=== PATIENT | male | born 1985 | race Caucasian/White ===

== ENCOUNTER 2021-06-14 10:56 | Observation (INO) | payer BC ==
[~2021-06-14] VITALS: Ht 182.9 cm; Wt 222.3 kg
[2021-06-14 13:18] LABS: HEMOGLOBIN 13.5 gm/dl (14.0-17.5); RED BLOOD COUNT 4.27 M/UL (4.20-5.50); WHITE BLOOD COUNT 10.5 K/UL (4.5-11.0)
[2021-06-14 13:47] LABS: BUN/CREATININE RATIO 27 (0-10)
[2021-06-14] MEDS ORDERED: PROTONIX 40 MG40 M1 PO (18:44)
[2021-06-14] MEDS ORDERED: ONDANSETRON HCL4 MG PO (18:45)
[2021-06-14] MEDS ORDERED: BUPRENORPHIN-N1 EACH SL ×2 (18:46)
[2021-06-14] MEDS ORDERED: QUETIAPINE FUMA50 MG PO (18:47)
[2021-06-14] MEDS ORDERED: LISINOPRIL10 MG PO (18:47)
[2021-06-14] MEDS ORDERED: PROPRANOLOL HCL10 MG PO (18:47)
[2021-06-14] MEDS ORDERED: METHOCARBAMOL500 MG PO (18:47)
[2021-06-14] MEDS ORDERED: VENLAFAXINE H37.5 MG PO (18:48)
[2021-06-14] MEDS ORDERED: LEVOTHYROXINE25 MCG PO (18:48)
[2021-06-14] MEDS ORDERED: GUANFACINE HCL1 MG PO (18:48)
[2021-06-14] MEDS ORDERED: DICLOFENAC POTA50 MG PO (18:52)
[2021-06-14] MEDS ORDERED: VITAMIN D21250 MCG PO (18:52)
[2021-06-14] MEDS ORDERED: HYDROXYZINE PAM25 MG PO (18:53)
[2021-06-14] MEDS ORDERED: LISINOPRIL40 MG PO (18:53)
[2021-06-14] MEDS ORDERED: SERTRALINE HCL100 MG PO (18:53)
[2021-06-14] MEDS ORDERED: AMLODIPINE BESY10 MG PO (18:53)
[2021-06-14] MEDS ORDERED: FEBUXOSTAT40 MG PO (18:54)
[2021-06-14] MEDS ORDERED: CETIRIZINE HCL10 MG PO (18:54)
[2021-06-14] MEDS ORDERED: GEMFIBROZIL600 MG PO (18:54)
[2021-06-14] MEDS ORDERED: RYBELSUS7 MG PO (18:55)
[2021-06-14] MEDS ORDERED: OMEPRAZOLE40 MG PO (18:55)
[2021-06-14] MEDS ORDERED: METFORMIN HCL1000 MG PO (18:55)
[2021-06-15 07:18] LABS: HEMOGLOBIN 12.9 gm/dl (14.0-17.5); RED BLOOD COUNT 4.16 M/UL (4.20-5.50); WHITE BLOOD COUNT 8.8 K/UL (4.5-11.0)
[2021-06-15 07:55] LABS: BUN/CREATININE RATIO 24 (0-10)
[2021-06-16 07:28] LABS: BUN/CREATININE RATIO 18 (0-10)
[2021-06-16] MEDS ORDERED: ADULT LOW DOSE81 MG PO (09:54)
== END 2021-06-16 13:08 | disposition home or self-care (01) ==
LOC: ER1 10:56 → CDU 18:19 → M/S 18:19
PROVIDERS: Physician Assistant; ADMIT Internal Medicine
DX: R07.89 Other chest pain (principal); I10 Essential (primary) hypertension; E78.5 Hyperlipidemia, unspecified; E11.9 Type 2 diabetes mellitus without complications; M10.9 Gout, unspecified; M19.90 Unspecified osteoarthritis, unspecified site; D64.9 Anemia, unspecified; R06.09 Other forms of dyspnea; F39 Unspecified mood [affective] disorder; R16.1 Splenomegaly, not elsewhere classified; G47.33 Obstructive sleep apnea (adult) (pediatric); E66.01 Morbid (severe) obesity due to excess calories; Z68.44 Body mass index [BMI] 60.0-69.9, adult; Z20.822 Contact with and (suspected) exposure to COVID-19; Z79.84 Long term (current) use of oral hypoglycemic drugs; Z86.16 Personal history of COVID-19
CPT/HCPCS: ECHO; 36415; 70450; 71045; 76705; 80053; 80061; 82550; 82553; 82962; 83036; 83735; 83874; 84484; 85025; 85027; 93005; 93306; 99285; G0378; Q0177; Q9967; U0002